=== PATIENT | female | born 1935 | race Caucasian/White ===

== ENCOUNTER 2016-05-10 22:18 | Day surgery (SDCO) | payer MEDICARE, OTHER ==
[2016-05-10 22:41] LABS: BASOPHIL 0.7 % (0-2); EOSINOPHIL 4.8 % (0-7); LYMPHOCYTE 24.6 % (15-48); MCH 31.5 pg (25.0-31.0); MCHC 32.6 g/dL (32.0-36.0); MCV 96.6 fL (78.0-100.0); MPV 11.2 fL (6.0-9.5); NEUTROPHIL 60.9 % (41-80); PLT 187 K/uL (150-400); RBC 4.45 M/uL (4.20-5.40); RDW 14.7 % (11.5-14.0); WBC 8.7 K/uL (4.0-10.5)
[2016-05-10 22:50] LABS: INR 1.21 (0.9-1.2); PROTHROMBIN TIME 14.9 SECONDS (11.7-14.0)
[2016-05-10 22:51] LABS: PTT 37.6 SECONDS (23.2-31.4)
[2016-05-10 23:01] LABS: ALBUMIN 3.8 g/dL (3.4-4.8); BILIRUBIN - TOTAL 0.5 mg/dL (0.1-1.0); CREATININE 1.1 mg/dL (0.5-1.0); GLOBULIN (CALCULATION) 3.4 g/dL (2.2-4.2); MAGNESIUM 1.79 mg/dL (1.40-2.10); TOTAL PROTEIN 7.2 g/dL (6.4-8.3)
[2016-05-10 23:02] LABS: MYOGLOBIN 80 ng/mL (26-65); TROPONIN T < 0.010 ng/mL
[2016-05-10 23:03] LABS: PRO-BNP 963 pg/mL (0-450)
[2016-05-11 04:27] LABS: BASOPHIL 0.7 % (0-2); EOSINOPHIL 4.3 % (0-7); HCT 40.6 % (37.0-47.0); HGB 13.3 g/dl (12.5-16.0); LYMPHOCYTE 15.3 % (15-48); MCH 31.6 pg (25.0-31.0); MCHC 32.8 g/dL (32.0-36.0); MCV 96.4 fL (78.0-100.0); MONOCYTE 4.3 % (0-12); NEUTROPHIL 75.4 % (41-80); PLT 160 K/uL (150-400); RBC 4.21 M/uL (4.20-5.40); RDW 14.6 % (11.5-14.0); WBC 5.4 K/uL (4.0-10.5)
[2016-05-11 04:48] LABS: CKMB 3.63 ng/mL (0.97-4.94); TROPONIN T < 0.010 ng/mL
[2016-05-11 05:15] LABS: ALBUMIN 3.2 g/dL (3.4-4.8); BILIRUBIN - TOTAL 0.6 mg/dL (0.1-1.0); GLOBULIN (CALCULATION) 3.2 g/dL (2.2-4.2); TOTAL PROTEIN 6.4 g/dL (6.4-8.3)
[2016-05-11 11:07] LABS: CKMB 3.92 ng/mL (0.97-4.94); TROPONIN T < 0.010 ng/mL
--- NOTE | 2016-05-12 09:10 | NUR ---
PT TEARFUL ASKING WHY SHE WAS HERE SHE CANNOT RECALL CALL PLACED TO [facility] - PT SPOKE WITH HER INFORMED HER SHE WAS COMING TO THE HOSPITAL TO SEE HER PT CONTINUES TO ASK QUESTIONS REPEATEDLY TO WHERE SHE IS WHO BROUGHT HER HOW SHE WAS THIS NURSE WILL CONTINUE TO ATTEMP TO REDIRECT
[2016-05-12] MEDS ORDERED: ASPIRIN CHEWABL81 MG PO (10:26)
[2016-05-12] MEDS ORDERED: OXYCODONE-ACET1 EACH PO (10:26)
[2016-05-12] MEDS ORDERED: ALLOPURINOL100 MG PO (10:26)
[2016-05-12] MEDS ORDERED: VITAMIN D400 UNI2 PO (10:27)
[2016-05-12] MEDS ORDERED: COLACE100 MG PO (10:27)
[2016-05-12] MEDS ORDERED: DONEPEZIL HCL10 MG PO (10:27)
[2016-05-12] MEDS ORDERED: CALCIUM600 MG PO (10:27)
[2016-05-12] MEDS ORDERED: IMDUR 30MG TABL30 MG PO (10:28)
[2016-05-12] MEDS ORDERED: FAMOTIDINE40 MG PO (10:28)
[2016-05-12] MEDS ORDERED: ATIVAN0.5 MG PO (10:30)
[2016-05-12] MEDS ORDERED: LIDODERM PATCH 51 EA TOP (10:30)
[2016-05-12] MEDS ORDERED: PROTONIX 40MG T40 MG PO (10:33)
[2016-05-12] MEDS ORDERED: MAG-OXIDE 400M400 MG PO (10:33)
[2016-05-12] MEDS ORDERED: ZOCOR40 MG PO (10:33)
[2016-05-12] MEDS ORDERED: MOBIC7.5 MG PO (10:33)
[2016-05-12] MEDS ORDERED: SPIRIVA RESPIMAT4 G1 PO (10:34)
[2016-05-12] MEDS ORDERED: SOTALOL80 MG PO (10:34)
== END 2016-05-12 16:34 | disposition home or self-care (01) ==
LOC: FER 22:18 → FICU 05-11 02:15 → FMS 05-11 11:00
PROVIDERS: Emergency Medicine Emergency Medical Services; ADMIT Internal Medicine Nephrology
DX: M13.812 Other specified arthritis, left shoulder (principal); I48.91 Unspecified atrial fibrillation; R07.89 Other chest pain; E78.5 Hyperlipidemia, unspecified; E11.9 Type 2 diabetes mellitus without complications; J44.9 Chronic obstructive pulmonary disease, unspecified; Z98.890 Other specified postprocedural states; E78.00 Pure hypercholesterolemia, unspecified; Z95.5 Presence of coronary angioplasty implant and graft; M10.9 Gout, unspecified; M06.9 Rheumatoid arthritis, unspecified; Z90.49 Acquired absence of other specified parts of digestive tract; Z90.710 Acquired absence of both cervix and uterus; Z88.8 Allergy status to other drugs, medicaments and biological substances; Z79.899 Other long term (current) drug therapy; Z79.82 Long term (current) use of aspirin; I13.0 Hypertensive heart and chronic kidney disease with heart failure and stage 1 through stage 4 chronic kidney disease, or unspecified chronic kidney disease; N18.3 Chronic kidney disease, stage 3 (moderate); I50.9 Heart failure, unspecified; Z87.891 Personal history of nicotine dependence; Z98.51 Tubal ligation status; Z88.1 Allergy status to other antibiotic agents
CPT/HCPCS: 36415; 71010; 71250; 73030; 80053; 80061; 82550; 82553; 82962; 83735; 83874; 83880; 84484; 85025; 85379; 85610; 85730; 93005; 94010; 94640; 97110; 97116; 97162; 97166; 97530-GP; 97535; G0378; J1100; J1170; J2060; J2270; J2405

== ENCOUNTER 2016-07-16 17:55 | Emergency (ER) | payer MEDICARE, OTHER ==
[~2016-07-16 17:55] MED LIST: ALLOPURINOL100 MG PO; ASPIRIN CHEWABL81 MG PO; ATIVAN0.5 MG PO; CALCIUM600 MG PO; COLACE100 MG PO; DONEPEZIL HCL10 MG PO; FAMOTIDINE40 MG PO; IMDUR 30MG TABL30 MG PO; LIDODERM PATCH 51 EA TOP; MAG-OXIDE 400M400 MG PO; MOBIC7.5 MG PO; OXYCODONE-ACET1 EACH PO; PROTONIX 40MG T40 MG PO; SOTALOL80 MG PO; SPIRIVA RESPIMAT4 G1 PO; VITAMIN D400 UNI2 PO; ZOCOR40 MG PO
[2016-07-16 19:57] LABS: BILIRUBIN NEGATIVE (NEGATIVE); BLOOD NEGATIVE Ery/uL (NEGATIVE); CLARITY CLEAR (CLEAR); COLOR YELLOW (YELLOW); GLUCOSE (U) NORMAL (NORMAL); KETONE (U) NEGATIVE (NEGATIVE); LEUKOCYTES 1+ Leu/uL (NEGATIVE); NITRITE NEGATIVE (NEGATIVE); PROTEIN NEGATIVE (NEGATIVE); SPECIFIC GRAVITY 1.025 (1.001-1.030); UROBILINOGEN 0.2 mg/dL (0.2-1.0)
[2016-07-16 20:03] LABS: BACTERIA 1+
== END 2016-07-16 20:02 | disposition home or self-care (01) ==
LOC: FER 17:55
PROVIDERS: Nurse Practitioner
DX: N30.90 Cystitis, unspecified without hematuria (principal); Z87.09 Personal history of other diseases of the respiratory system; Z88.1 Allergy status to other antibiotic agents; Z88.8 Allergy status to other drugs, medicaments and biological substances
CPT/HCPCS: 81001; 87076; 87088; 87186; 99283

== ENCOUNTER 2016-07-22 07:30 | Emergency (ER) | payer MEDICARE, OTHER ==
[2016-07-22 08:25] LABS: BASOPHIL 0.5 % (0-2); EOSINOPHIL 12.4 % (0-7); HCT 45.1 % (37.0-47.0); HGB 14.8 g/dl (12.5-16.0); LYMPHOCYTE 27.2 % (15-48); MCHC 32.8 g/dL (32.0-36.0); MCV 94.4 fL (78.0-100.0); MONOCYTE 7.6 % (0-12); MPV 10.8 fL (6.0-9.5); NEUTROPHIL 52.3 % (41-80); PLT 175 K/uL (150-400); RBC 4.78 M/uL (4.20-5.40); WBC 7.7 K/uL (4.0-10.5)
[2016-07-22 08:42] LABS: ALBUMIN 3.5 g/dL (3.4-4.8); BILIRUBIN - TOTAL 0.4 mg/dL (0.1-1.0); CREATININE 1.3 mg/dL (0.5-1.0); GLOBULIN (CALCULATION) 3.3 g/dL (2.2-4.2); POTASSIUM 4.9 mmol/L (3.5-5.1); TOTAL PROTEIN 6.8 g/dL (6.4-8.3)
== END 2016-07-22 09:04 | disposition home or self-care (01) ==
LOC: FER 07:30
PROVIDERS: Emergency Medicine
DX: R30.0 Dysuria (principal); I25.10 Atherosclerotic heart disease of native coronary artery without angina pectoris; J44.9 Chronic obstructive pulmonary disease, unspecified; Z87.440 Personal history of urinary (tract) infections; Z79.82 Long term (current) use of aspirin; Z79.51 Long term (current) use of inhaled steroids; Z79.899 Other long term (current) drug therapy; Z95.5 Presence of coronary angioplasty implant and graft
CPT/HCPCS: 36415; 80053; 85025; 99283; J1335